=== PATIENT | male | born 1980 | race Caucasian/White ===

== ENCOUNTER 2022-10-01 15:03 | Emergency (ER) | payer BC ==
[2022-10-01] MEDS ORDERED: Tetracaine HCl/PF 0.5% 4 ML Bottle EYELF STA (15:45)
== END 2022-10-01 16:48 | disposition home or self-care (01) ==
LOC: MW.ED 15:03
DX: S05.02XA Injury of conjunctiva and corneal abrasion without foreign body, left eye, initial encounter (principal)
CPT/HCPCS: 99283; J3490